=== PATIENT | female | born 1990 | race Caucasian/White ===

== ENCOUNTER → 2017-10-17 | Outpatient (CLI) | payer OTHER ==
--- NOTE | 2017-10-17 14:28 | US ---
EXAMINATION TYPE: US renal artery duplex complet DATE OF EXAM: 10/17/2017 COMPARISON: NONE CLINICAL HISTORY: Hypertension I10. MEASUREMENTS: RENAL SIZE: Rt Kidney: 11.7 x 4.3 x 5.5cm Lt Kidney: 11.8 x 5.4 x 5.2cm RESISTANCE INDEX Right: 0.6 Left: 0.07 RA/AO RATIO (< 3.5 ) Right: 2.2 Left: 2.2 RA VELOCITY ( < 180 cm/s) Right: 203cm/sec Left: 160cm/sec Left kidney stone measuring 0.3 x 0.2 x 0.3cm Slightly high velocity in right renal artery, but no indication of renal artery stenosis. IMPRESSION: 1. No sonographic evidence to suggest renal artery stenosis at this time. 2. Nonobstructing left renal calculus.
== END | disposition home or self-care (01) ==
LOC: RADUSMAIN 11:48
PROVIDERS: ATTEND Internal Medicine Nephrology
DX: N20.0 Calculus of kidney (principal); I10 Essential (primary) hypertension
CPT/HCPCS: 93975

== ENCOUNTER → 2017-10-19 | Outpatient (CLI) | payer OTHER ==
--- NOTE | 2017-10-19 10:47 | ECHOS ---
STRESS ECHOCARDIOGRAM DATE OF SERVICE: 10/19/2017 INDICATIONS: Pre-op cardiac evaluation. MEDICATIONS: BASELINE HEART RATE: 105 BASELINE BLOOD PRESSURE: 136/82 MAXIMUM HEART RATE: 184 MAXIMUM BLOOD PRESSURE: 170/39 85% MPHR: 164 100% MPHR: 193 METS: 10 MAXIMUM STAGE REACHED: III TOTAL EXERCISE TIME: 9 minutes CLINICAL INFORMATION: Baseline EKG shows sinus rhythm, normal axis, nonspecific ST-T wave changes. The patient exercised on Estrada protocol for a total of 9 minutes achieving 10 METs, 95% of predicted maximal heart rate without chest pain. There was worsening of the baseline ST-T wave changes noted. Baseline echo shows normal size left ventricle with mild diffuse global hypokinesis with an ejection fraction of around 45%. Postexercise there is normal hyperdynamic response of all segments of myocardium noted. CONCLUSIONS: 1. Excellent exercise tolerance. 2. Inconclusive EKG part of the stress test due to baseline EKG abnormalities. 3. Non-ischemic cardiomyopathy without any evidence of stress-induced ischemia. MMODL / IJN: [id number] /
== END | disposition home or self-care (01) ==
LOC: RADNMMAIN 08:25
PROVIDERS: ATTEND Internal Medicine Nephrology
DX: O90.3 Peripartum cardiomyopathy (principal); I10 Essential (primary) hypertension; R00.2 Palpitations; R06.09 Other forms of dyspnea
CPT/HCPCS: 93017; 93350

== ENCOUNTER → 2017-10-19 | Outpatient (CLI) | payer OTHER ==
[2017-10-19 09:01] LABS: Basophils % (A) 0 %; Eosinophils # (A) 0.1 k/uL (0-0.7); Eosinophils % (A) 1 %; HCT 47.4 % (34.0-46.0); HGB 15.5 gm/dL (11.4-16.0); Lymphocytes # (A) 1.8 k/uL (1.0-4.8); Lymphocytes % (A) 21 %; MCH 29.5 pg (25.0-35.0); MCHC 32.7 g/dL (31.0-37.0); MCV 90.1 fL (80.0-100.0); Mean Platelet Volume 8.4; Monocytes # (A) 0.3 k/uL (0-1.0); Monocytes % (A) 3 %; Neutrophils # (A) 6.5 k/uL (1.3-7.7); Neutrophils % (A) 73 %; Platelet Count 243 k/uL (150-450); RBC 5.25 m/uL (3.80-5.40); RDW 13.7 % (11.5-15.5); WBC 8.9 k/uL (3.8-10.6)
== END | disposition home or self-care (01) ==
LOC: LABPAT 08:07
PROVIDERS: ATTEND Obstetrics & Gynecology
DX: Z01.812 Encounter for preprocedural laboratory examination (principal)
CPT/HCPCS: 36415; 85025

== ENCOUNTER 2017-10-23 06:18 | Day surgery (SDC) | payer OTHER ==
[2017-10-12 15:10] VITALS: BMI 29.7
[~2017-10-23 06:18] MED LIST: DEXAMETHASONE SOD PHOSPHATE 10 MG/ML 1 ML VIAL IV ONE; LACTATED RINGERS 1,000 ML IV SCH; MIDAZOLAM 2 MG/2 ML VIAL IV PRN; MORPHINE SULFATE 4 MG/ML SYRINGE IV PRN; ONDANSETRON 4 MG/2 ML VIAL IVP ONE; Pre Op ABX Message 1 EACH MISC MISCELLANE ONE; SCOPOLAMINE 1.5MG/72HR PATCH TRANSDERM ONE
[2017-10-23] MEDS ORDERED: BUPIVACAINE (PF) 0.25% 30 ML VIAL SQ ONE (07:25)
[2017-10-23] MEDS ORDERED: PROPOFOL 10 MG/ML 20 ML VIAL IV ONE (07:50)
[2017-10-23] MEDS ORDERED: ROCURONIUM BROMIDE 10 MG/ML 10 ML VIAL IV ONE (07:50)
[2017-10-23] MEDS ORDERED: NEOSTIGMINE 1 MG/ML 10 ML VIAL ONE (07:50)
[2017-10-23] MEDS ORDERED: fentaNYL (PF) 50 MCG/ML 2 ML AMP ONE (07:50)
[2017-10-23] MEDS ORDERED: MIDAZOLAM 2 MG/2 ML VIAL ONE (07:50)
[2017-10-23] MEDS ORDERED: LIDOCAINE 1% INJ 10MG/ML (20 ML MDV) ONE (07:50)
[2017-10-23] MEDS ORDERED: SUCCINYLCHOLINE CHLORIDE 100 MG/5 ML SYR IV ONE (07:50)
[2017-10-23] MEDS ORDERED: GLYCOPYRROLATE 0.2 MG/ML 2 ML VIAL ONE (07:50)
--- NOTE | 2017-10-23 08:18 | P.OP ---
Date of Procedure: 10/23/17 Preoperative Diagnosis: Marisel planning Postoperative Diagnosis: Same Procedure(s) Performed: Laparoscopic tubal occlusion with Filshie clips and removal of Mirena IUD Anesthesia: ARNALDO Surgeon: Rene Gordon Estimated Blood Loss (ml): 5 IV fluids (ml): 700 Urine output (ml): 20 Pathology: none sent Condition: stable Disposition: same day Operative Findings: Normal uterus tubes and ovaries Description of Procedure: Patient was taken to the operating suite where a general anesthetic was found be adequate. She was prepped and draped in the normal sterile fashion and placed in the dorsal lithotomy position. Initially a weighted speculum was inserted into the vagina and the anterior lip cervix was identified and grasped with an Allis clamp. Cervix and brought into view and using a ring forceps the Mirena IUD was removed. Uterus was then sounded to 7 cm and a manipulator was inserted without difficulty. Red rubber cath was then used to drain the bladder of urine and other instruments were removed. Gloves were then changed and attention was turned to the abdominal portion of the procedure where 3 mL of quarter percent Marcaine were injected periumbilically. Through this injected anesthetic a 5 mm skin incision was made. Through this incision under direct visualization with an optical trocar and sleeve the camera was inserted. Once peritoneal placement was assured gas was allowed to fully insufflate the abdomen and patient was then placed in Trendelenburg position. A second port and sleeve were then inserted through an 8 mm skin incision 3 cm above the pubic symphysis in the midline. Observations pelvis were then noted. First the right tube than the left tube had a Filshie clip applied 3 cm from uterine cornu. No bleeding is noted in the mesosalpinx therefore instruments were removed and gas was allowed to expel from the abdomen. 5 deep breaths were provided during this process. Once this was completed ports were removed and 4- 0 Vicryl was used to close the incisions subcuticularly. The remaining 7 mL of Marcaine were then injected around these incisions and instruments were removed from vagina. Sponge, lap, needle counts were all correct 2. Patient was then taken to the recovery room in stable and satisfactory condition. Plan - Discharge Summary New Discharge Prescriptions: New Ibuprofen [Motrin] 600 mg PO Q6HR PRN #30 tab PRN Reason: Pain No Action Ibuprofen [Motrin] 600 mg PO Q6HR PRN #30 tab PRN Reason: Pain traZODone HCL 100 mg PO HS Acetaminophen [Tylenol] 1,000 mg PO Q4-6H PRN PRN Reason: Pain busPIRone HCl [Buspar] 15 mg PO BID Spironolactone [Aldactone] 25 mg PO DAILY Losartan Potassium 50 mg PO HS Carvedilol [Coreg] 6.25 mg PO BID Levonorgestrel [Mirena] 1 implant VAGINAL [id number] Discharge Medication List Ibuprofen [Motrin] 600 mg PO Q6HR PRN #30 tab 03/22/16 [Rx] Acetaminophen [Tylenol] 1,000 mg PO Q4-6H PRN 10/12/17 [History] Carvedilol [Coreg] 6.25 mg PO BID 10/12/17 [History] Levonorgestrel [Mirena] 1 implant VAGINAL [id number] 10/12/17 [History] Losartan Potassium 50 mg PO HS 10/12/17 [History] Spironolactone [Aldactone] 25 mg PO DAILY 10/12/17 [History] busPIRone HCl [Buspar] 15 mg PO BID 10/12/17 [History] traZODone HCL 100 mg PO HS 10/12/17 [History] Ibuprofen [Motrin] 600 mg PO Q6HR PRN #30 tab 10/23/17 [Rx] Follow up Appointment(s)/Referral(s): Rene Gordon DO [Doctor of Osteopathic Medicine] - 2 Weeks Activity/Diet/Wound Care/Special Instructions: No heavy lifting, limit stairs and driving and pelvic rest. If any high temperatures, heavy bleeding, or severe pain call my office Discharge Disposition: HOME SELF-CARE
[2017-10-23] MEDS: HYDROmorphone 4 MG/ML 1 ML SYRINGE IVP ONE ×4 (08:25→08:40)
[2017-10-23 08:35] VITALS: TEMP 98.2
[2017-10-23] MEDS ORDERED: HYDROmorphone 4 MG/ML 1 ML SYRINGE IVP ONE (08:35)
[2017-10-23] MEDS ORDERED: KETOROLAC 30 MG/ML 1 ML VIAL IVP ONE (08:44)
[2017-10-23 09:58] VITALS: BP 136/70; PULSE 88; RESP 18
--- NOTE | 2017-10-24 20:24 | P.HPOB ---
History of Present Illness H&P Date: 10/23/17 Chief Complaint: Family planning Dianne is a 27 female female whose completed her family planning. She had an episode of heather-and/ hypertensive cardiomyopathy with her last and as she has completed her family planning does not wish to risk any further competitions she is scheduled for a laparoscopic tubal occlusion with Filshie clips. Risks/benefits/alternatives were reviewed with the patient in detail and all questions were answered for her prior to proceeding to the operating room. On physical exam vital signs are stable and she is afebrile. Heart regular, lungs clear, extremities are without pain. Abdomen soft nontender. Positive bowel sounds are noted. Pelvic exam is otherwise unremarkable. At the same time as we are tying her fallopian tubes, we'll plan to remove her IUD. All the questions are answered for her prior to proceeding to the operating room and she is been cleared by cardiology for this procedure. Past Medical History Past Medical History: Asthma, GERD/Reflux, Hypertension Additional Past Medical History / Comment(s): cardiomyopathy,SOB with activity History of Any Multi-Drug Resistant Organisms: None Reported Past Surgical History: Adenoidectomy, Section, Cholecystectomy, Tonsillectomy Additional Past Surgical History / Comment(s): d&c 2, exp laparoscopy for cysts on ovary, tubes in ears Past Anesthesia/Blood Transfusion Reactions: No Reported Reaction Smoking Status: Never smoker - Past Family History Mother Family Medical History: No Reported History Additional Family Medical History / Comment(s): Mother is alive at age 45 and has problems with breathing Father Family Medical History: No Reported History Additional Family Medical History / Comment(s): Father is alive and has no major medical problems. Patient has 2 sisters and one has difficulty with breathing. Medications and Allergies Home Medications Medication Instructions Recorded Confirmed Type Ibuprofen [Motrin] 600 mg PO Q6HR PRN #30 tab 03/22/16 10/12/17 Rx Acetaminophen [Tylenol] 1,000 mg PO Q4-6H PRN 10/12/17 10/23/17 History Carvedilol [Coreg] 6.25 mg PO BID 10/12/17 10/12/17 History Levonorgestrel [Mirena] 1 implant VAGINAL [id number] 10/12/17 10/12/17 History Losartan Potassium 50 mg PO HS 10/12/17 10/23/17 History Spironolactone [Aldactone] 25 mg PO DAILY 10/12/17 10/23/17 History busPIRone HCl [Buspar] 15 mg PO BID 10/12/17 10/12/17 History traZODone HCL 100 mg PO HS 10/12/17 10/23/17 History Ibuprofen [Motrin] 600 mg PO Q6HR PRN #30 tab 10/23/17 Rx Allergies Allergy/AdvReac Type Severity Reaction Status Date / Time Sulfa (Sulfonamide Allergy Rash/Hives Verified 10/23/17 06:47 Antibiotics) Exam Osteopathic Statement: *. No significant issues noted on an osteopathic structural exam other than those noted in the History and Physical/Consult.
== END 2017-10-23 10:04 | disposition home or self-care (01) ==
LOC: OR 06:18
PROVIDERS: ATTEND Obstetrics & Gynecology
DX: Z30.2 Encounter for sterilization (principal); Z30.432 Encounter for removal of intrauterine contraceptive device; J45.909 Unspecified asthma, uncomplicated; K21.9 Gastro-esophageal reflux disease without esophagitis; I10 Essential (primary) hypertension; Z79.899 Other long term (current) drug therapy; Z88.2 Allergy status to sulfonamides
CPT/HCPCS: 81025; 58301; 58671; J2250; J1100; J2710; J2405; J2001; J3010; J1885; J0330; J2704; J1170

== ENCOUNTER 2018-09-13 11:55 | Emergency (ER) | payer OTHER ==
[2018-09-13 11:59] VITALS: TEMP 98.1
--- NOTE | 2018-09-13 12:42 | ED ---
General Adult HPI - General Chief complaint: Headache Stated complaint: vision loss Source: patient, RN notes reviewed, old records reviewed Mode of arrival: ambulatory Limitations: no limitations - History of Present Illness Initial comments: 28-year-old female patient with past medical history of hypertension, peripartum Cardiomyopathy presents to ED with 6 month history of visual complaints, falls without provocation. Patient states that she fell yesterday the first time in 2 weeks, caught herself on her arms, denies trauma to head or neck, denies any falls or result in trauma to head or neck, denies any injury sustained from fall. Patient states that without any identifiable trigger she has had her vision in both eyes spontaneously "black out" for approximately 1-2 seconds. Patient states that this is happening frequently within the last 6 months, stated this happened approximately 4 times yesterday. Patient states that she is long history of migraine headaches. Patient states that she has had waxing and waning tension headaches over the last 6 months. Patient states that she has a very mild headache right now, states that this is her baseline. Patient denies worst headache of her life, patient denies thunderclap headache, patient denies nuchal rigidity, patient denies jaw claudication, patient denies pain to palpation of temporal region. Patient denies nausea vomiting diarrhea, fever or chills, IV drug use. Pt follows up with Dr. José with cardiology and Dr. Martinez as PCP. Systemic: Pt denies fatigue, myalgia, fever/chills, rash. Pt denies weakness, night sweats, weight loss. Neuro: Pt denies syncope or pre-syncope. HEENT: Pt denies ocular discharge or irritation, otalgia, rhinorrhea, pharyngitis or notable lymphadenopathy. Cardiopulmonary: Pt denies chest pain, SOB, heart palpitations, dyspnea on exertion. Abdominal/GI: Pt denies abdominal pain, n/v/d. : Pt denies dysuria, burning w/ urination, frequency/urgency. Denies new onset urinary or bowel incontinence. MSK: Pt denies myalgia, loss of strength or function in extremities. Neuro: Pt denies new onset weakness, paresthesias. - Related Data Home Medications Medication Instructions Recorded Confirmed Carvedilol [Coreg] 6.25 mg PO BID 10/12/17 09/13/18 Losartan Potassium 50 mg PO HS 10/12/17 09/13/18 Spironolactone [Aldactone] 25 mg PO DAILY 10/12/17 09/13/18 busPIRone HCl [Buspar] 20 mg PO BID 10/12/17 09/13/18 traZODone HCL 50 - 100 mg PO HS 10/12/17 09/13/18 Allergies Allergy/AdvReac Type Severity Reaction Status Date / Time Sulfa (Sulfonamide Allergy Rash/Hives Verified 09/13/18 12:05 Antibiotics) Review of Systems ROS Statement: Those systems with pertinent positive or pertinent negative responses have been documented in the HPI. ROS Other: All systems not noted in ROS Statement are negative. Past Medical History Past Medical History: Asthma, GERD/Reflux, Hypertension Additional Past Medical History / Comment(s): cardiomyopathy,SOB with activity History of Any Multi-Drug Resistant Organisms: None Reported Past Surgical History: Adenoidectomy, Section, Cholecystectomy, Tonsillectomy Additional Past Surgical History / Comment(s): d&c 2, exp laparoscopy for cysts on ovary, tubes in ears Past Anesthesia/Blood Transfusion Reactions: No Reported Reaction Past Psychological History: Anxiety, Bipolar, Depression Smoking Status: Current some day smoker Past Alcohol Use History: Rare Past Drug Use History: Marijuana - Past Family History Mother Family Medical History: No Reported History Additional Family Medical History / Comment(s): Mother is alive at age 45 and has problems with breathing Father Family Medical History: No Reported History Additional Family Medical History / Comment(s): Father is alive and has no major medical problems. Patient has 2 sisters and one has difficulty with breathing. General Exam - General Exam Comments Initial Comments: Constitutional: NAD, AOX3, Pt has pleasant affect. HEENT: NC/AT, trachea midline, neck supple, no lymphadenopathy. Posterior pharynx non erythematous, without exudates. External ears appear normal, without discharge. Mucous membranes moist. Eyes PERRLA, EOM intact. There is no scleral icterus. No pallor noted. Cardiopulmonary: RRR, no murmurs, rubs or gallops, no JVD noted. Lungs CTAB in anterior and posterior sequeira. No peripheral edema. Abdominal exam: Abdomen soft and non-distended. Abdomen non-tender to palpation in all 4 quadrants. Bowel sounds active in LLQ. No hepatosplenomegaly. No ecchymosis Neuro: CN II-XII intact. No cranial nerve deficit, no focal deficit, no facial droop. No nuchal rigidity. Patient able to without difficulty, heel to toe walking intact.. Psoas and quadriceps strength 5 out of 5 bilaterally. Patellar and Achilles reflexes 2 out of 4 bilaterally. Sensation intact fully in upper and lower extremities. Biceps and triceps strength 5 out of 5 bilaterally. MSK: No posterior calf tenderness bilaterally, homans sign negative bilaterally. Posterior tibialis and radial pulse +2 bilaterally. No jaw claudication, no temporal tenderness to palpation, no erythema, no edema. No cervical spinal tenderness. Limitations: no limitations Course Vital Signs 09/13/18 11:57 Temperature 98.1 F Pulse Rate 105 H Respiratory 18 Rate Blood Pressure 124/84 O2 Sat by Pulse 99 Oximetry Medical Decision Making - Medical Decision Making 28-year-old feel patient presented to ED due to visual complaints, falls without provocation. Patient denies falls resulting in her neck trauma. Patient has had these complaints for approximately 6 months. Physical exam did not reveal gross pathology. Neuro exam was within normal limits, no focal deficit, no facial droop. Patient ambulatory without difficulty. Initial investigations were conducted including a CBC, CMP which were noncompressive. An EKG displayed sinus rhythm with some premature atrial complexes, no concerns for acute ischemia. UA did not display urinary tract infection. CT of brain did not display acute pathology. CT of cervical spine did not exclude carmela malformation, findings explained patient at depth, patient to follow with neurology. Patient instructed not to drive until neurology follow-up. Patient given neurology consult to call today. Patient to follow up with primary care provider in 1-2 days. Patient to return to ED if any new signs or symptoms develop including loss of consciousness, presyncope, chest pain, shortness of breath, worsening changes in vision, new headache, fever/chills, neck stiffness , any other new symptoms. Case discussed with Dr. Wells. - Lab Data Result diagrams: 09/13/18 13:00 09/13/18 13:00 Lab Results 09/13/18 09/13/18 09/13/18 Range/Units 13:00 13:00 13:00 WBC 8.6 (3.8-10.6) k/uL RBC 4.43 (3.80-5.40) m/uL Hgb 13.6 (11.4-16.0) gm/dL Hct 40.9 (34.0-46.0) % MCV 92.2 (80.0-100.0) fL MCH 30.8 (25.0-35.0) pg MCHC 33.3 (31.0-37.0) g/dL RDW 12.3 (11.5-15.5) % Plt Count 182 (150-450) k/uL Neutrophils % 69 % Lymphocytes % 23 % Monocytes % 4 % Eosinophils % 2 % Basophils % 0 % Neutrophils # 5.9 (1.3-7.7) k/uL Lymphocytes # 2.0 (1.0-4.8) k/uL Monocytes # 0.3 (0-1.0) k/uL Eosinophils # 0.2 (0-0.7) k/uL Basophils # 0.0 (0-0.2) k/uL Sodium 140 (137-145) mmol/L Potassium 3.9 (3.5-5.1) mmol/L Chloride 106 (98-107) mmol/L Carbon Dioxide 26 (22-30) mmol/L Anion Gap 8 mmol/L BUN 10 (7-17) mg/dL Creatinine 0.53 (0.52-1.04) mg/dL Est GFR (CKD-EPI)AfAm >90 (>60 ml/min/1.73 sqM) Est GFR (CKD-EPI)NonAf >90 (>60 ml/min/1.73 sqM) Glucose 90 (74-99) mg/dL Calcium 9.5 (8.4-10.2) mg/dL Total Bilirubin 0.6 (0.2-1.3) mg/dL AST 15 (14-36) U/L ALT 28 (9-52) U/L Alkaline Phosphatase 29 L (38-126) U/L Total Protein 6.9 (6.3-8.2) g/dL Albumin 4.2 (3.5-5.0) g/dL Urine Color Urine Appearance (Clear) Urine pH (5.0-8.0) Ur Specific [place] (1.001-1.035) Urine Protein (Negative) Urine Glucose (UA) (Negative) Urine Ketones (Negative) Urine Blood (Negative) Urine Nitrite (Negative) Urine Bilirubin (Negative) Urine Urobilinogen (<2.0) mg/dL Ur Leukocyte Esterase (Negative) Urine RBC (0-5) /hpf Urine WBC (0-5) /hpf Ur Squamous Epith Cells (0-4) /hpf Urine Bacteria (None) /hpf Urine Mucus (None) /hpf Urine HCG, Qual Not Detected (Not Detectd) 09/13/18 Range/Units 13:00 WBC (3.8-10.6) k/uL RBC (3.80-5.40) m/uL Hgb (11.4-16.0) gm/dL Hct (34.0-46.0) % MCV (80.0-100.0) fL MCH (25.0-35.0) pg MCHC (31.0-37.0) g/dL RDW (11.5-15.5) % Plt Count (150-450) k/uL Neutrophils % % Lymphocytes % % Monocytes % % Eosinophils % % Basophils % % Neutrophils # (1.3-7.7) k/uL Lymphocytes # (1.0-4.8) k/uL Monocytes # (0-1.0) k/uL Eosinophils # (0-0.7) k/uL Basophils # (0-0.2) k/uL Sodium (137-145) mmol/L Potassium (3.5-5.1) mmol/L Chloride (98-107) mmol/L Carbon Dioxide (22-30) mmol/L Anion Gap mmol/L BUN (7-17) mg/dL Creatinine (0.52-1.04) mg/dL Est GFR (CKD-EPI)AfAm (>60 ml/min/1.73 sqM) Est GFR (CKD-EPI)NonAf (>60 ml/min/1.73 sqM) Glucose (74-99) mg/dL Calcium (8.4-10.2) mg/dL Total Bilirubin (0.2-1.3) mg/dL AST (14-36) U/L ALT (9-52) U/L Alkaline Phosphatase (38-126) U/L Total Protein (6.3-8.2) g/dL Albumin (3.5-5.0) g/dL Urine Color Yellow Urine Appearance Cloudy H (Clear) Urine pH 6.5 (5.0-8.0) Ur Specific [place] 1.017 (1.001-1.035) Urine Protein Trace H (Negative) Urine Glucose (UA) Negative (Negative) Urine Ketones Negative (Negative) Urine Blood Small H (Negative) Urine Nitrite Negative (Negative) Urine Bilirubin Negative (Negative) Urine Urobilinogen <2.0 (<2.0) mg/dL Ur Leukocyte Esterase Small H (Negative) Urine RBC 1 (0-5) /hpf Urine WBC 1 (0-5) /hpf Ur Squamous Epith Cells 21 H (0-4) /hpf Urine Bacteria Rare H (None) /hpf Urine Mucus Many H (None) /hpf Urine HCG, Qual (Not Detectd) - EKG Data -: EKG Interpreted by Me EKG Comments: Ventricular rate 86, ME interval 144, QRS 86, QT/QTC 368/440. Sinus rhythm with premature atrial complexes. No concerns for acute ischemia. Disposition Clinical Impression: Vision abnormalities, Vision blurred Disposition: HOME SELF-CARE Condition: Good Instructions: Blurred Vision (ED) Additional Instructions: Patient to adhere to previously discussed treatment plan and will take medication(s) as directed. Patient to follow up with PCP in 1-2 days. Patient to return to ED if symptoms do not improve. Is patient prescribed a controlled substance at d/c from ED?: No Referrals: Nuno Avelar MD [Primary Care Provider] - 1-2 days Dagmar Ozuna MD [STAFF PHYSICIAN] - 1-2 days Time of Disposition: 14:04
[2018-09-13 13:17] LABS: Basophils % (A) 0 %; Eosinophils # (A) 0.2 k/uL (0-0.7); Eosinophils % (A) 2 %; HCT 40.9 % (34.0-46.0); HGB 13.6 gm/dL (11.4-16.0); Lymphocytes % (A) 23 %; MCH 30.8 pg (25.0-35.0); MCHC 33.3 g/dL (31.0-37.0); MCV 92.2 fL (80.0-100.0); Mean Platelet Volume 8.2; Monocytes # (A) 0.3 k/uL (0-1.0); Monocytes % (A) 4 %; Neutrophils # (A) 5.9 k/uL (1.3-7.7); Neutrophils % (A) 69 %; Platelet Count 182 k/uL (150-450); RBC 4.43 m/uL (3.80-5.40); RDW 12.3 % (11.5-15.5); WBC 8.6 k/uL (3.8-10.6)
[2018-09-13 13:25] LABS: Appearance,Urine Cloudy (Clear); Bacteria,Urine Rare /hpf; Bilirubin,Urine Negative (Negative); Blood,Urine Small (Negative); Color,Urine Yellow; Glucose,Urine (UA) Negative (Negative); Ketones,Urine Negative (Negative); Leukocyte Esterase,Urine Small (Negative); Mucus,Urine Many /hpf; Nitrite,Urine Negative (Negative); PH, Urine 6.5 (5.0-8.0); Protein,Urine Trace (Negative); RBC,Urine 1 /hpf (0-5); Specific Gravity,Urine 1.017 (1.001-1.035); Squamous Epithelial Cell,Urine 21 /hpf (0-4); Urobilinogen,Urine <2.0 mg/dL (<2.0)
[2018-09-13 13:33] LABS: ALT 28 U/L (9-52); AST 15 U/L (14-36); Albumin 4.2 g/dL (3.5-5.0); Alkaline Phosphatase 29 U/L (38-126); Anion Gap 8 mmol/L; Blood Urea Nitrogen 10 mg/dL (7-17); Calcium 9.5 mg/dL (8.4-10.2); Carbon Dioxide 26 mmol/L (22-30); Chloride 106 mmol/L (98-107); Glucose 90 mg/dL (74-99); Potassium 3.9 mmol/L (3.5-5.1); Sodium 140 mmol/L (137-145); Total Bilirubin 0.6 mg/dL (0.2-1.3); Total Protein 6.9 g/dL (6.3-8.2)
--- NOTE | 2018-09-13 13:42 | CT ---
EXAMINATION TYPE: CT brain chandni wo con DATE OF EXAM: 09/13/2018 COMPARISON: 03/26/2016 HISTORY: vision loss on and off x [address] DLP: 1211.1 mGycm, Automated exposure control for dose reduction was used. CONTRAST: Patient injected with 0 mL of Isovue 300. CT of the brain is performed utilizing 3 mm thick sections through the posterior fossa and 3 mm thick sections through the remaining calvarium. Study is performed within 24 hours of arrival to the hospital. No abnormal hyperdensity is present to suggest an acute intracranial hemorrhage. No mass lesion is evident. No acute infarcts are evident. Ventricles and sulci are appropriate for the patient age. Paranasal sinuses and mastoid air cells within the [id number] are clear. IMPRESSIONS: 1. Normal CT brain. CT cervical spine. COMPARISON: None CT of the cervical spine is performed in the axial plane at 2 mm thick sections. Reconstructed image s in the coronal, and sagittal plane are reviewed on the computer. Chiari malformation is not excluded. This area is difficult to evaluate on the brain within the field -of-view and on bone windows. There is clinical concern, MRI could be performed. No acute fractures are evident. There is a subtle kyphosis centered at C5 present. Disc heights are preserved. Vertebral body heights are preserved. No spinal canal stenosis is evident. Spina bifida occulta of C1 is present. No neural foraminal stenosis is evident. IMPRESSIONS: 1. Cervical kyphosis centered at C5. 2. Chiari malformation is not excluded. This could be better evaluated with MRI.
[2018-09-13 14:22] VITALS: BP 123/72; PULSE 89; RESP 16
== END 2018-09-13 14:20 | disposition home or self-care (01) ==
LOC: EC 11:55
DX: H53.8 Other visual disturbances (principal); I49.1 Atrial premature depolarization; R51 Headache; R29.6 Repeated falls; I10 Essential (primary) hypertension; F31.9 Bipolar disorder, unspecified; F41.9 Anxiety disorder, unspecified; F17.200 Nicotine dependence, unspecified, uncomplicated; Z88.2 Allergy status to sulfonamides; Z79.899 Other long term (current) drug therapy; W19.XXXA Unspecified fall, initial encounter
CPT/HCPCS: 36415; 70450; 72125; 80053; 81001; 81025; 85025; 93005; 99284

== ENCOUNTER → 2018-10-03 | Outpatient (CLI) | payer OTHER ==
--- NOTE | 2018-10-03 15:02 | MR ---
EXAMINATION TYPE: MR cervical spine wo con DATE OF EXAM: 10/03/2018 COMPARISON: HISTORY: Trasient Visual Loss / Arnold-Chiari Syndrome, blackout, dizzy, vision problems CONTRAST: Performed utilizing 0 mL intravenous Gadavist gadolinium contrast. TECHNIQUE: Multiplanar multiecho imaging on a 3.0 Lorraine magnet is performed through the cervical spin e. FINDINGS: The craniovertebral junction has some descent of the tonsillar pillars and through the fora men magnum. This lies 0.6 cm below the Troy's line which is just outside of normal compatible medina e very mild Arnold-Chiari malformation. Tonsillar pain and medullary kinking are not identified. Vertebral body alignment is normal. Disc heights and disc hydration appear preserved. C7-T1: No focal disc herniation or significant disc bulge is evident. No spinal canal stenosis or n eural foraminal stenosis is present. C6-7: Minimal left paracentral bulge is present with very subtle anterior thecal sac contact. No spin al canal stenosis cord contact or neural foraminal stenosis is present.. C5-6: No focal disc herniation or significant disc bulge is evident. No spinal canal stenosis or jen ral foraminal stenosis is present. C4-5: No focal disc herniation or significant disc bulge is evident. No spinal canal stenosis or jen ral foraminal stenosis is present. C3-4: No focal disc herniation or significant disc bulge is evident. No spinal canal stenosis or jen ral foraminal stenosis is present. C2-3: No focal disc herniation or significant disc bulge is evident. No spinal canal stenosis or jen ral foraminal stenosis is present. IMPRESSIONS: 1. Findings compatible with mild Arnold-Chiari malformation. 2. Some very minimal left paracentral broad-based disc bulge is present C6-7 questionable clinical si gnificance.
--- NOTE | 2018-10-03 15:16 | MR ---
EXAMINATION TYPE: MR angio head wo con DATE OF EXAM: 10/03/2018 COMPARISON: None HISTORY: Transient Visual Loss / Arnold-Chiari Syndrome, blackout, dizzy, vision problems CONTRAST: None TECHNIQUE: Multiplanar multiecho imaging on a 3.0 Lorraine magnet is performed through the [place] of [place]. 3-D [id number] imaging is performed. Source images are reviewed on the computer in the axi al plane. Reconstructed images rotating on the computer are reviewed. FINDINGS: The internal carotid arteries bifurcate normally into A1 and M1 segments. The A2 segments are normal. Middle cerebral artery branches are normal. Anterior communicating artery is patent. The right posterior communicating artery is patent. This is smaller than on the left. The left posterior communicating artery is patent. Vertebrobasilar arteries within the [id number] are normal. Posterior cerebral vasculature is norm al. No suspicious aneurysm or aneurysmal dilatation is evident. No obstructions are identified. No significant flow-limiting stenosis is evident. IMPRESSIONS: 1. NORMAL MRA ALUTIIQ OF [place].
--- NOTE | 2018-10-03 16:15 | MR ---
EXAMINATION TYPE: MR brain wo con DATE OF EXAM: 10/03/2018 COMPARISON: CT brain 03/26/2016 HISTORY: Transient Visual Loss / Arnold-Chiari Syndrome, blackout, dizzy, vision problems CONTRAST: Performed utilizing 0 mL intravenous Gadavist gadolinium contrast. TECHNIQUE: Multiplanar, multiecho imaging on a 3.0 Lorraine magnet is performed through the brain. Stud y is performed within 24 hours of arrival to the hospital. The craniovertebral junction has tonsillar descent into the foramen magnum. This was evaluated on the MRI cervical spine is compatible with mild Arnold-Chiari malformation with 6 mm tonsillar descent. N o medullary kinking tonsillar pain is evident.. The pituitary is normal. Diffusion-weighted imaging is performed. No abnormal hyperintensity is present to suggest an acute i ntracranial infarct or acute ischemic change. Signal through the brain is normal. Ventricles and sulci are appropriate for the patient age. Minimal mucosal thickening is within the right maxillary sinus and within ethmoid air cells. Remainin g paranasal sinuses and mastoid air cells are clear. IMPRESSIONS: 1. Arnold-Chiari malformation.
== END | disposition home or self-care (01) ==
LOC: RADMRIMAIN 06:40
PROVIDERS: ATTEND Internal Medicine
DX: Q07.00 Arnold-Chiari syndrome without spina bifida or hydrocephalus (principal); M50.223 Other cervical disc displacement at C6-C7 level; H53.129 Transient visual loss, unspecified eye
CPT/HCPCS: 70544; 70551; 72141

== ENCOUNTER → 2018-10-10 | Outpatient (CLI) | payer OTHER ==
--- NOTE | 2018-10-11 10:40 | ECHOF ---
Referral Reason:O90.3 Post cardiomyopathy MEASUREMENTS -------- HEIGHT: 170.2 cm WEIGHT: 66.2 kg BP: 126/67 RVIDd: 3.3 cm (< 3.3) IVSd: 1.1 cm (0.6 - 1.1) LVIDd: 5.0 cm (3.9 - 5.3) LVPWd: 1.1 cm (0.6 - 1.1) IVSs: 1.5 cm LVIDs: 3.7 cm LVPWs: 1.7 cm LA Diam: 3.6 cm (2.7 - 3.8) LAESV Index (A-L): 17.44 ml/m Ao Diam: 3.4 cm (2.0 - 3.7) AV Cusp: 2.2 cm (1.5 - 2.6) MV EXCURSION: 15.792 mm (> 18.000) MV EF SLOPE: 109 mm/s (70 - 150) EPSS: 0.9 cm MV E Wallace: 0.83 m/s MV DecT: 197 ms MV A Wallace: 0.67 m/s MV E/A Ratio: 1.23 FINDINGS -------- Sinus rhythm with extra systolic beats. This was a technically good study. The left ventricular size is normal. There is borderline concentric left ventricular hypertrophy. Overall left ventricular systolic function is normal with, an EF between 55 - 60 %. The right ventricle is mildly enlarged. Normal LA size by volume 22+/-6 ml/m2. The right atrium is normal in size. The aortic valve is trileaflet and appears structurally normal. Mild mitral regurgitation is present. Mild tricuspid regurgitation present. Right ventricular systolic pressure is normal at < 35 mmHg. Trace/mild (physiologic) pulmonic regurgitation. The aortic root size is normal. Normal inferior vena cava with normal inspiratory collapse consistent with estimated right atrial pre ssure of 5 mmHg. There is no pericardial effusion. CONCLUSIONS -------- 1. Sinus rhythm with extra systolic beats. 2. This was a technically good study. 3. The left ventricular size is normal. 4. There is borderline concentric left ventricular hypertrophy. 5. Overall left ventricular systolic function is normal with, an EF between 55 - 60 %. 6. The right ventricle is mildly enlarged. 7. Normal LA size by volume 22+/-6 ml/m2. 8. The right atrium is normal in size. 9. The aortic valve is trileaflet and appears structurally normal. 10. Mild mitral regurgitation is present. 11. Mild tricuspid regurgitation present. 12. Right ventricular systolic pressure is normal at < 35 mmHg. 13. Trace/mild (physiologic) pulmonic regurgitation. 14. The aortic root size is normal. 15. Normal inferior vena cava with normal inspiratory collapse consistent with estimated right atrial pressure of 5 mmHg. 16. There is no pericardial effusion. CHECKER IN: Lexii Ribera RDCS
== END | disposition home or self-care (01) ==
LOC: RADECHMAIN 15:41
PROVIDERS: ATTEND Internal Medicine
DX: O90.3 Peripartum cardiomyopathy (principal); I08.1 Rheumatic disorders of both mitral and tricuspid valves
CPT/HCPCS: 93306

== ENCOUNTER 2018-12-09 15:47 | Emergency (ER) | payer OTHER ==
--- NOTE | 2018-12-09 16:17 | ED ---
General Adult HPI - General Chief complaint: Chest Pain Stated complaint: Chest pain Time Seen by Provider: 12/09/18 15:57 Source: patient Mode of arrival: ambulatory Limitations: no limitations - History of Present Illness Initial comments: Dictation was produced using [employer] dictation software. please excuse any grammatical, word or spelling errors. Chief Complaint: 28-year-old female presents with chief complaint of chest pain. History of Present Illness: She is a 28-year-old female presents with chief complaint of chest pain. Patient states that her symptoms began 5 days ago. She was seen at [facility] where she had EKG and chest x-ray performed. Patient is discharged told to follow-up with primary care physician. She went to her PCPs office where she was set up with a Holter monitor. Patient was scheduled to have an outpatient echocardiogram here tomorrow. She was at work today when she felt as though her pain was so severe. She reports that her pain is substernal and sharp with exacerbations to deep inspiration. Patient denies any cardiac history. She reports that pain similar in the back area as well. She did report some numbness to her left hand that occurred intermittently. 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 The ROS documented in this emergency department record has been reviewed and confirmed by me. Those systems with pertinent positive or negative responses have been documented in the HPI. All other systems are other negative and/or noncontributory. PHYSICAL EXAM: General Impression: Alert and oriented x3, mildly acute distress HEENT: Normocephalic atraumatic, extra-ocular movements intact, pupils equal and reactive to light bilaterally, mucous membranes moist. Cardiovascular: Heart regular rate and rhythm, S1&S2 audible, no murmurs, rubs or gallops Chest: Lungs clear to auscultation bilaterally, no rhonchi, no wheeze, no rales Abdomen: Bowel sounds present, abdomen soft, non-tender, non-distended, no organomegaly Musculoskeletal: Pulses present and equal in all extremities, no peripheral edema Motor: Power 5/5 bilaterally, no focal deficits noted Neurological: CN II-XII grossly intact, no focal motor or sensory deficits noted Skin: Intact with no visualized rashes Psych: Normal affect and mood ED course: 28 yo female with chief complaint of chest pain. Vital signs upon arrival are within acceptable limits.Laboratory evaluation obtained. CBC, coag panel, metabolic panel, cardiac enzymes negative. CT angios of the chest showed no acute processes. No evidence of pulmonary embolism or acute aortic dissection. 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 Patient's symptoms are atypical for ACS. No aspirin indicated at this time. However given history of chest pain patient likely benefit from cardiology evaluation. Patient does have established cardiology at [facility]. Patient given local millwork estimator information for local evaluation if desired. Patient understandable agreeable to plan. Patient's click or presentation is atypical chest pain without high-risk features. EKG interpretation: Ventricular rate 79, normal sinus rhythm, AK interval 16, QS 90, QTC 4:15. No AK prolongation, no QTC prolongation, no ST or T-wave changes noted. Overall, this EKG is unremarkable - Related Data Home Medications Medication Instructions Recorded Confirmed Carvedilol [Coreg] 6.25 mg PO BID 10/12/17 12/09/18 Losartan Potassium 50 mg PO HS 10/12/17 12/09/18 Spironolactone [Aldactone] 25 mg PO DAILY 10/12/17 12/09/18 busPIRone HCl [Buspar] 20 mg PO BID 10/12/17 12/09/18 Famotidine [Pepcid] 20 mg PO BID 12/09/18 12/09/18 Topiramate [Topamax] 75 mg PO HS 12/09/18 12/09/18 traZODone HCL 25 mg PO HS 12/09/18 12/09/18 Allergies Allergy/AdvReac Type Severity Reaction Status Date / Time Sulfa (Sulfonamide Allergy Rash/Hives Verified 12/09/18 16:39 Antibiotics) Review of Systems ROS Statement: Those systems with pertinent positive or pertinent negative responses have been documented in the HPI. ROS Other: All systems not noted in ROS Statement are negative. Past Medical History Past Medical History: Asthma, GERD/Reflux, Hypertension Additional Past Medical History / Comment(s): cardiomyopathy,SOB with activity History of Any Multi-Drug Resistant Organisms: None Reported Past Surgical History: Adenoidectomy, Section, Cholecystectomy, Tonsillectomy Additional Past Surgical History / Comment(s): d&c 2, exp laparoscopy for cysts on ovary, tubes in ears Past Anesthesia/Blood Transfusion Reactions: No Reported Reaction Past Psychological History: Anxiety, Bipolar, Depression Smoking Status: Current every day smoker Past Alcohol Use History: Rare Past Drug Use History: Marijuana - Past Family History Mother Family Medical History: No Reported History Additional Family Medical History / Comment(s): Mother is alive at age 45 and has problems with breathing Father Family Medical History: No Reported History Additional Family Medical History / Comment(s): Father is alive and has no major medical problems. Patient has 2 sisters and one has difficulty with breathing. General Exam Limitations: no limitations Course Vital Signs 12/09/18 12/09/18 15:50 16:30 Temperature 97.8 F Pulse Rate 85 77 Respiratory 18 20 Rate Blood Pressure 125/77 117/80 O2 Sat by Pulse 100 99 Oximetry Medical Decision Making - Lab Data Result diagrams: 12/09/18 16:30 12/09/18 16:30 Lab Results 12/09/18 12/09/18 12/09/18 Range/Units 16:30 16:30 16:30 WBC 9.7 (3.8-10.6) k/uL RBC 4.40 (3.80-5.40) m/uL Hgb 13.9 (11.4-16.0) gm/dL Hct 41.2 (34.0-46.0) % MCV 93.8 (80.0-100.0) fL MCH 31.7 (25.0-35.0) pg MCHC 33.8 (31.0-37.0) g/dL RDW 12.2 (11.5-15.5) % Plt Count 214 (150-450) k/uL Neutrophils % 68 % Lymphocytes % 24 % Monocytes % 5 % Eosinophils % 1 % Basophils % 0 % Neutrophils # 6.6 (1.3-7.7) k/uL Lymphocytes # 2.3 (1.0-4.8) k/uL Monocytes # 0.5 (0-1.0) k/uL Eosinophils # 0.1 (0-0.7) k/uL Basophils # 0.0 (0-0.2) k/uL PT 10.9 (9.0-12.0) sec INR 1.0 (<1.2) APTT 27.2 (22.0-30.0) sec Sodium 138 (137-145) mmol/L Potassium 3.7 (3.5-5.1) mmol/L Chloride 111 H (98-107) mmol/L Carbon Dioxide 21 L (22-30) mmol/L Anion Gap 6 mmol/L BUN 14 (7-17) mg/dL Creatinine 0.70 (0.52-1.04) mg/dL Est GFR (CKD-EPI)AfAm >90 (>60 ml/min/1.73 sqM) Est GFR (CKD-EPI)NonAf >90 (>60 ml/min/1.73 sqM) Glucose 90 (74-99) mg/dL Calcium 9.3 (8.4-10.2) mg/dL Magnesium 2.1 (1.6-2.3) mg/dL Total Bilirubin 0.6 (0.2-1.3) mg/dL AST 13 L (14-36) U/L ALT 26 (9-52) U/L Alkaline Phosphatase 39 (38-126) U/L Creatine Kinase 44 (30-135) U/L Troponin I (0.000-0.034) ng/mL Total Protein 6.9 (6.3-8.2) g/dL Albumin 4.4 (3.5-5.0) g/dL Lipase 86 (23-300) U/L 12/09/18 Range/Units 16:30 WBC (3.8-10.6) k/uL RBC (3.80-5.40) m/uL Hgb (11.4-16.0) gm/dL Hct (34.0-46.0) % MCV (80.0-100.0) fL MCH (25.0-35.0) pg MCHC (31.0-37.0) g/dL RDW (11.5-15.5) % Plt Count (150-450) k/uL Neutrophils % % Lymphocytes % % Monocytes % % Eosinophils % % Basophils % % Neutrophils # (1.3-7.7) k/uL Lymphocytes # (1.0-4.8) k/uL Monocytes # (0-1.0) k/uL Eosinophils # (0-0.7) k/uL Basophils # (0-0.2) k/uL PT (9.0-12.0) sec INR (<1.2) APTT (22.0-30.0) sec Sodium (137-145) mmol/L Potassium (3.5-5.1) mmol/L Chloride (98-107) mmol/L Carbon Dioxide (22-30) mmol/L Anion Gap mmol/L BUN (7-17) mg/dL Creatinine (0.52-1.04) mg/dL Est GFR (CKD-EPI)AfAm (>60 ml/min/1.73 sqM) Est GFR (CKD-EPI)NonAf (>60 ml/min/1.73 sqM) Glucose (74-99) mg/dL Calcium (8.4-10.2) mg/dL Magnesium (1.6-2.3) mg/dL Total Bilirubin (0.2-1.3) mg/dL AST (14-36) U/L ALT (9-52) U/L Alkaline Phosphatase (38-126) U/L Creatine Kinase (30-135) U/L Troponin I <0.012 (0.000-0.034) ng/mL Total Protein (6.3-8.2) g/dL Albumin (3.5-5.0) g/dL Lipase (23-300) U/L Disposition Clinical Impression: Chest pain Disposition: HOME SELF-CARE Condition: Good Instructions (If sedation given, give patient instructions): Chest Pain (ED) Is patient prescribed a controlled substance at d/c from ED?: No Referrals: Nuno Avelar MD [Primary Care Provider] - 1-2 days Domo Miranda MD [STAFF PHYSICIAN] - 1-2 days Time of Disposition: 18:11
[2018-12-09 16:47] LABS: Basophils % (A) 0 %; Eosinophils # (A) 0.1 k/uL (0-0.7); Eosinophils % (A) 1 %; HCT 41.2 % (34.0-46.0); HGB 13.9 gm/dL (11.4-16.0); Lymphocytes # (A) 2.3 k/uL (1.0-4.8); Lymphocytes % (A) 24 %; MCH 31.7 pg (25.0-35.0); MCHC 33.8 g/dL (31.0-37.0); MCV 93.8 fL (80.0-100.0); Monocytes # (A) 0.5 k/uL (0-1.0); Monocytes % (A) 5 %; Neutrophils # (A) 6.6 k/uL (1.3-7.7); Neutrophils % (A) 68 %; Platelet Count 214 k/uL (150-450); RDW 12.2 % (11.5-15.5); WBC 9.7 k/uL (3.8-10.6)
--- NOTE | 2018-12-09 16:50 | XR ---
EXAMINATION TYPE: XR chest 1V portable DATE OF EXAM: 12/09/2018 COMPARISON: Chest x-ray May 16, 2016 HISTORY: Chest pain. TECHNIQUE: Single frontal view of the chest is obtained. FINDINGS: Overlying EKG leads are seen. There is no focal air space opacity, pleural effusion, or pne umothorax seen. The cardiac silhouette size is within normal limits. The osseous structures are in tact. IMPRESSION: No acute process. No significant change from prior.
[2018-12-09 17:01] LABS: ALT 26 U/L (9-52); AST 13 U/L (14-36); Albumin 4.4 g/dL (3.5-5.0); Alkaline Phosphatase 39 U/L (38-126); Anion Gap 6 mmol/L; Blood Urea Nitrogen 14 mg/dL (7-17); Calcium 9.3 mg/dL (8.4-10.2); Carbon Dioxide 21 mmol/L (22-30); Chloride 111 mmol/L (98-107); Creatine Kinase 44 U/L (30-135); Glucose 90 mg/dL (74-99); Lipase 86 U/L (23-300); Potassium 3.7 mmol/L (3.5-5.1); Sodium 138 mmol/L (137-145); Total Bilirubin 0.6 mg/dL (0.2-1.3); Total Protein 6.9 g/dL (6.3-8.2)
[2018-12-09 17:04] LABS: Partial Thromboplastin Time 27.2 sec (22.0-30.0); Prothrombin Time 10.9 sec (9.0-12.0)
[2018-12-09 17:16] LABS: Magnesium 2.1 mg/dL (1.6-2.3)
--- NOTE | 2018-12-09 17:53 | CT ---
EXAMINATION TYPE: CT angio chest DATE OF EXAM: 12/09/2018 COMPARISON: Chest x-ray from earlier today. CTA chest from 2016 HISTORY: Mid to left chest pain with shortness of breath x [address] DLP: 237.2 mGycm. Automated Exposure Control for Dose Reduction was Utilized. CONTRAST: CTA scan of the thorax is performed with IV Contrast, patient injected with 64 mL of Isovue 370, pulm onary embolism protocol. MIP Images are created on CT scanner and reviewed. FINDINGS: LUNGS: The lungs are grossly clear, there is no concerning parenchymal mass or nodule identified. T here is no pleural effusion or pneumothorax seen. The tracheobronchial tree is patent. MEDIASTINUM: There is satisfactory enhancement of the pulmonary artery and its branches, there is no CT evidence for pulmonary embolism. There are no greater than 1 cm hilar or mediastinal lymph nodes. No cardiomegaly or pericardial effusion is seen. Some curvilinear soft tissue anterior superior me diastinum is felt to reflect residual thymus axial image 45. OTHER: Cholecystectomy clips are seen on current study. IMPRESSION: No CT evidence for acute pulmonary embolism. No suspicious acute pulmonary process curren tly.
[2018-12-09 19:27] VITALS: BP 119/73; PULSE 84; RESP 18; TEMP 98.3
== END 2018-12-09 18:50 | disposition home or self-care (01) ==
LOC: EC 15:47
DX: R07.2 Precordial pain (principal); R20.0 Anesthesia of skin; I10 Essential (primary) hypertension; K21.9 Gastro-esophageal reflux disease without esophagitis; F41.9 Anxiety disorder, unspecified; F32.9 Major depressive disorder, single episode, unspecified; F17.200 Nicotine dependence, unspecified, uncomplicated; Z87.09 Personal history of other diseases of the respiratory system; Z79.899 Other long term (current) drug therapy; Z88.2 Allergy status to sulfonamides
CPT/HCPCS: 36415; 93005; 80053; 82550; 83690; 83735; 84484; 85025; 85610; 85730; 71045; 71275; 99285; Q9967

== ENCOUNTER → 2018-12-19 | Outpatient (CLI) | payer OTHER ==
--- NOTE | 2018-12-19 12:34 | ECHOF ---
Referral Reason:R07.89 Chest Pain MEASUREMENTS -------- HEIGHT: 170.2 cm WEIGHT: 65.3 kg BP: RVIDd: 3.0 cm (< 3.3) IVSd: 1.0 cm (0.6 - 1.1) LVIDd: 4.9 cm (3.9 - 5.3) LVPWd: 1.2 cm (0.6 - 1.1) IVSs: 1.4 cm LVIDs: 4.0 cm LVPWs: 1.2 cm LA Diam: 3.2 cm (2.7 - 3.8) LAESV Index (A-L): 24.09 ml/m Ao Diam: 3.3 cm (2.0 - 3.7) AV Cusp: 2.3 cm (1.5 - 2.6) LA Diam: 3.5 cm (2.7 - 3.8) MV EXCURSION: 22.169 mm (> 18.000) MV EF SLOPE: 120 mm/s (70 - 150) EPSS: 0.4 cm MV E Wallace: 0.85 m/s MV DecT: 257 ms MV A Wallace: 0.73 m/s MV E/A Ratio: 1.16 RAP: 5.00 mmHg RVSP: 20.36 mmHg FINDINGS -------- Sinus rhythm. This was a technically good study. LV size, wall thickness and systolic function are normal, with an EF greater than 55%. The left socrates tricular size is normal. The right ventricle is normal in size. Normal LA size by volume 22+/-6 ml/m2. The right atrial size is normal. The aortic valve is trileaflet, and appears structurally normal. No aortic stenosis or regurgitation. The mitral valve is normal. Mild mitral regurgitation is present. The tricuspid valve appears structurally normal. Mild tricuspid regurgitation present. There is n o evidence of pulmonary hypertension. The right ventricular systolic pressure, as measured by Doppl er, is 20.36mmHg. There is no pulmonic regurgitation present. The aortic root size is normal. There is no pericardial effusion. CONCLUSIONS -------- 1. Sinus rhythm. 2. This was a technically good study. 3. LV size, wall thickness and systolic function are normal, with an EF greater than 55%. 4. The left ventricular size is normal. 5. Normal LA size by volume 22+/-6 ml/m2. 6. The aortic valve is trileaflet, and appears structurally normal. No aortic stenosis or regurgitati on. 7. Mild mitral regurgitation is present. 8. Mild tricuspid regurgitation present. 9. There is no evidence of pulmonary hypertension. 10. There is no pulmonic regurgitation present. 11. The aortic root size is normal. 12. There is no pericardial effusion. ANCHOR TACKER: Nori Lehman RDCS
== END | disposition home or self-care (01) ==
LOC: RADECHMAIN 08:23
PROVIDERS: ATTEND Internal Medicine
DX: I08.1 Rheumatic disorders of both mitral and tricuspid valves (principal); R07.89 Other chest pain
CPT/HCPCS: 93306

== ENCOUNTER → 2019-02-06 | Outpatient (CLI) | payer OTHER ==
[2019-02-05 13:45] VITALS: BMI 23.0
--- NOTE | 2019-02-06 14:20 | P.CONS ---
History of Present Illness - Reason for Consult Consult date: 02/06/19 - Chief Complaint Occipital headache - History of Present Illness This is a 28-year-old lady with chronic history of migraine headache mostly in the occipital area. The patient describes her pain as a throbbing that continues for 5-6 days every week. The patient tried Imitrex with little or no help. Right now she is taking Topamax 100 mg at night. She was referred to us by her neurologist for a trial of occipital nerve block. Her headache also gets worse by movement of the neck. She describes typical symptoms for her migraine headache with photophobia, nausea and vomiting. The patient has a history of cardiomyopathy however her last echo was within normal limits and she also has history of hypertension. Lately she was found to have mild degree of Arnold-Chiari malformation. The patient is going to the [facility] for further consultation for this problem. Review of Systems Cardiovascular: Denies chest pain, Denies shortness of breath Respiratory: Denies cough Neurological: Reports as per HPI Past Medical History Past Medical History: Asthma, GERD/Reflux, Hypertension Additional Past Medical History / Comment(s): migraines, cardiomyopathy,SOB with activity History of Any Multi-Drug Resistant Organisms: None Reported Past Surgical History: Adenoidectomy, Section, Cholecystectomy, Tonsillectomy, Tubal Ligation Additional Past Surgical History / Comment(s): d&c 2, exp laparoscopy for cysts on ovary, tubes in ears Past Anesthesia/Blood Transfusion Reactions: No Reported Reaction Past Psychological History: Anxiety, Bipolar, Depression Smoking Status: Former smoker Past Alcohol Use History: Rare Additional Past Alcohol Use History / Comment(s): quit smoking January 2019,smoked approx 8 mos Past Drug Use History: Marijuana Additional Drug Use History / Comment(s): marijuana daily - Past Family History Mother Family Medical History: No Reported History Additional Family Medical History / Comment(s): Mother is alive at age 45 and has problems with breathing Father Family Medical History: No Reported History Additional Family Medical History / Comment(s): Father is alive and has no major medical problems. Patient has 2 sisters and one has difficulty with breathing. Medications and Allergies Home Medications Medication Instructions Recorded Confirmed Type Carvedilol [Coreg] 6.25 mg PO BID 10/12/17 02/06/19 History Losartan Potassium 50 mg PO HS 10/12/17 02/06/19 History Spironolactone [Aldactone] 25 mg PO DAILY 10/12/17 02/06/19 History busPIRone HCl [Buspar] 30 mg PO BID 10/12/17 02/06/19 History Famotidine [Pepcid] 20 mg PO BID 12/09/18 02/06/19 History Topiramate [Topamax] 100 mg PO HS 12/09/18 02/06/19 History traZODone HCL 50 mg PO HS 12/09/18 02/06/19 History Allergies Allergy/AdvReac Type Severity Reaction Status Date / Time Sulfa (Sulfonamide Allergy Rash/Hives Verified 02/06/19 13:57 Antibiotics) Physical Exam - Constitutional General appearance: average body habitus - EENT Eyes: PERRLA - Respiratory Respiratory: bilateral: CTA - Cardiovascular Rhythm: regular - Integumentary Integumentary: no calor, no cellulitis, no cyanotic, no decreased turgor, no flushed, no jaundiced, no normal, no normal turgor, no pale, no rash, no ulcer - Neurologic Neuro exam of the upper extremities is within normal limits Positive tenderness in the occipital area bilaterally Mild decrease in the range of motion of the cervical spine especially to right cervical rotation. No tenderness in the cervical paravertebral musculature Neurologic: CNII-XII intact - Musculoskeletal Musculoskeletal: gait normal - Psychiatric Psychiatric: A&O x's 3, appropriate affect, intact judgment & insight Assessment and Plan Plan: This is a 28-year-old female with history of chronic migraine headache and occipital headache with no response to antimigraine medications. The patient was referred to our clinic for a trial of occipital nerve block which we will do for 1 time bilaterally. The patient also has mild degree of Arnold-Chiari malformation patient is going for further consultation at the [facility] later on. The above-mentioned procedure was explained to the patient and her questions were answered.
[2019-02-06 14:24] VITALS: BP 121/82; PULSE 70; RESP 16
== END ==
LOC: PNWHC3 13:37
PROVIDERS: ATTEND Anesthesiology
DX: G89.29 Other chronic pain (principal); G43.909 Migraine, unspecified, not intractable, without status migrainosus; I10 Essential (primary) hypertension; Z88.2 Allergy status to sulfonamides; Z79.899 Other long term (current) drug therapy; Z87.891 Personal history of nicotine dependence
CPT/HCPCS: 99211

== ENCOUNTER 2019-02-20 07:20 | Day surgery (SDC) | payer OTHER ==
[2019-02-17 16:06] VITALS: BMI 22.7
[2019-02-20 07:42] VITALS: RESP 18; TEMP 97.8
[2019-02-20 08:51] VITALS: BP 110/61; PULSE 92
--- NOTE | 2019-02-20 08:52 | P.PCN ---
Date of Procedure: 02/20/19 Description of Procedure: Pre-operative diagnosis: 1- Bilateral occipital neuralgea Post Operative Diagnosis 1- Bilateral occipital neuralgea Procedure: 1- Bilateral occipital nerve block ANESTHESIA: None EBL: Minimal PROCEDURE INDICATION: The patient with neck pain and headache secondary to occipital neuralgea unresponsive to conservative treatments. PROCEDURE DESCRIPTION / TECHNIQUE: The patient was seen and identified in the preoperative area. Risks, benefits, complications, and alternatives were discussed with the patient, the patient agreed to proceed with the procedure and signed the consent. IV was started. Vital signs remained stable throughout the procedure. Patient was taken to the OR and time out was completed. The patient was placed in the sitting position on the procedure table. A pillow was placed under the patients chest to increase the cervical interlaminar space. The cervical area and right occiptial area were prepped with alcohol swab. Critical pause was taken. Vital signs were closely monitored during the procedure. Conscious sedation was used during the procedure to decrease patients anxiety. The right occiptal ridge was palpated and was then accessed with a 25 G needle. Then after negative aspiration, 4 ml of the block solution containing 2 ml of PF Ropivacaine 0.5% and Dexamethasone 10 mg was injected. Needle was withdrawn intact. Toenails were injected at each nerve Patient tolerated procedure well. No acute complications.
[2019-02-20] MEDS ORDERED: LACTATED RINGERS 1,000 ML IV SCH (09:00)
== END 2019-02-20 09:00 | disposition home or self-care (01) ==
LOC: ORPAIN 07:20
PROVIDERS: ATTEND Anesthesiology
DX: M54.81 Occipital neuralgia (principal); Z88.2 Allergy status to sulfonamides
CPT/HCPCS: 81025; 64405; J1100; J2001

== ENCOUNTER 2020-11-04 12:00 | Emergency (ER) | payer OTHER ==
[2020-11-04] MEDS ORDERED: SODIUM CHLORIDE 0.9% 1,000 ML IV STA (12:14)
--- NOTE | 2020-11-04 12:43 | ED ---
Abdominal Pain HPI - General Source: patient, RN notes reviewed Mode of arrival: ambulatory Limitations: no limitations <Rohan Plaza - Last Filed: 11/04/20 13:34> <Curt Vidal - Last Filed: 11/04/20 15:34> - General Chief Complaint: Abdominal Pain Stated Complaint: lower abd pain Time Seen by Provider: 11/04/20 12:08 - History of Present Illness Initial Comments: Patient is a 30-year-old female that presented to emergency department with abdominal pain with past medical history of asthma hypertension and GERD. Patient has past surgical history of cholecystectomy. She noted that she went to walk in clinic today and told the practitioner that she was having some right-sided abdominal pain that radiated around around to her back. They told her just to come to the ER to get evaluated. She was in no apparent distress or pain. She'll he noted the pain came on when pressure was applied over the specific location just lateral on the right side of the abdomen at the level of the bellybutton. She noted that she's had this off and on pain for about 4 days now, the pain is a 1 out of 10 that gets worse with pressure. She denied any nausea vomiting diarrhea constipation change in weight change in diet chest pain shortness of breath headache fever chills fatigue night sweats. She also noted that she had her tubes tied. (Rohan Plaza) - Related Data Home Medications Medication Instructions Recorded Confirmed Losartan Potassium 50 mg PO HS 10/12/17 02/17/19 Spironolactone [Aldactone] 25 mg PO DAILY 10/12/17 02/17/19 busPIRone HCl [Buspar] 30 mg PO BID 10/12/17 02/17/19 carvediloL [Coreg] 6.25 mg PO BID 10/12/17 02/17/19 Famotidine [Pepcid] 20 mg PO BID 12/09/18 02/17/19 Topiramate [Topamax] 100 mg PO HS 12/09/18 02/17/19 traZODone HCL 50 mg PO HS 12/09/18 02/17/19 Allergies Allergy/AdvReac Type Severity Reaction Status Date / Time Sulfa (Sulfonamide Allergy Rash/Hives Verified 11/04/20 12:05 Antibiotics) Review of Systems ROS Other: All systems not noted in ROS Statement are negative. <Rohan Plaza - Last Filed: 11/04/20 13:34> ROS Other: All systems not noted in ROS Statement are negative. <Curt Vidal - Last Filed: 11/04/20 15:34> ROS Statement: Those systems with pertinent positive or pertinent negative responses have been documented in the HPI. Past Medical History Past Medical History: Asthma, GERD/Reflux, Hypertension Additional Past Medical History / Comment(s): migraines, cardiomyopathy,SOB with activity History of Any Multi-Drug Resistant Organisms: None Reported Past Surgical History: Adenoidectomy, Section, Cholecystectomy, Tonsillectomy, Tubal Ligation Additional Past Surgical History / Comment(s): d&c 2, exp laparoscopy for cysts on ovary, tubes in ears Past Anesthesia/Blood Transfusion Reactions: No Reported Reaction Past Psychological History: Anxiety, Bipolar, Depression Smoking Status: Never smoker Past Alcohol Use History: Rare Past Drug Use History: Marijuana - Past Family History Mother Family Medical History: No Reported History Additional Family Medical History / Comment(s): Mother is alive at age 45 and has problems with breathing Father Family Medical History: No Reported History Additional Family Medical History / Comment(s): Father is alive and has no major medical problems. Patient has 2 sisters and one has difficulty with breathing. <Rohan Plaza - Last Filed: 11/04/20 13:34> General Exam Limitations: no limitations General appearance: alert, in no apparent distress Head exam: Present: atraumatic, normocephalic, normal inspection Eye exam: Present: normal appearance, PERRL, EOMI. Absent: scleral icterus, co njunctival injection, periorbital swelling ENT exam: Present: normal exam, mucous membranes moist Neck exam: Present: normal inspection. Absent: tenderness, meningismus, lymphadenopathy Respiratory exam: Present: normal lung sounds bilaterally. Absent: respiratory distress, wheezes, rales, rhonchi, stridor Cardiovascular Exam: Present: regular rate, normal rhythm, normal heart sounds. Absent: systolic murmur, diastolic murmur, rubs, gallop, clicks GI/Abdominal exam: Present: soft, normal bowel sounds, other (Increased tenderness and pain on palpation point specific just laterally to the naval on the right side.). Absent: distended, tenderness, guarding, rebound, rigid Extremities exam: Present: normal inspection, full ROM, normal capillary refill. Absent: tenderness, pedal edema, joint swelling, calf tenderness Neurological exam: Present: alert, oriented X3, CN II-XII intact Psychiatric exam: Present: normal affect, normal mood Skin exam: Present: warm, dry, intact, normal color. Absent: rash <Rohan Plaza - Last Filed: 11/04/20 13:34> Course Vital Signs 11/04/20 11/04/20 12:01 14:26 Temperature 98.2 F 98.0 F Pulse Rate 80 68 Respiratory 18 16 Rate Blood Pressure 114/75 110/72 O2 Sat by Pulse 97 99 Oximetry Medical Decision Making - Lab Data Result diagrams: 11/04/20 12:27 11/04/20 12:27 - Radiology Data Radiology results: report reviewed, image reviewed <Rohan Plaza - Last Filed: 11/04/20 13:34> - Lab Data Result diagrams: 11/04/20 12:27 11/04/20 12:27 <Curt Vidal - Last Filed: 11/04/20 15:34> - Medical Decision Making 30-year-old female complaining of abdominal pain. Labs are unremarkable. CT unremarkable for any signs of acute appendicitis. Case discussed with Dr. Rizo (Rohan Plaza) Patient's diagnosis is abdominal pain which is likely secondary to viral syndro me. She's given strict return parameters. I did personally evaluate this patient and discussed the radiology findings with the radiologist, initial interpretation was unclear but there is no signs of appendicitis on CT imaging. There is no leukocytosis. Patient will return with worsening or changing symptoms. (Curt Vidal) - Lab Data Lab Results 11/04/20 11/04/20 11/04/20 Range/Units 12:27 12:27 12:27 WBC 9.0 (3.8-10.6) k/uL RBC 4.83 (3.80-5.40) m/uL Hgb 15.4 (11.4-16.0) gm/dL Hct 44.3 (34.0-46.0) % MCV 91.8 (80.0-100.0) fL MCH 32.0 (25.0-35.0) pg MCHC 34.8 (31.0-37.0) g/dL RDW 11.8 (11.5-15.5) % Plt Count 193 (150-450) k/uL MPV 8.4 Neutrophils % 74 % Lymphocytes % 19 % Monocytes % 4 % Eosinophils % 1 % Basophils % 0 % Neutrophils # 6.7 (1.3-7.7) k/uL Lymphocytes # 1.7 (1.0-4.8) k/uL Monocytes # 0.3 (0-1.0) k/uL Eosinophils # 0.1 (0-0.7) k/uL Basophils # 0.0 (0-0.2) k/uL Sodium 138 (137-145) mmol/L Potassium 4.2 (3.5-5.1) mmol/L Chloride 108 H (98-107) mmol/L Carbon Dioxide 19 L (22-30) mmol/L Anion Gap 11 mmol/L BUN 14 (7-17) mg/dL Creatinine 0.82 (0.52-1.04) mg/dL Est GFR (CKD-EPI)AfAm >90 (>60 ml/min/1.73 sqM) Est GFR (CKD-EPI)NonAf >90 (>60 ml/min/1.73 sqM) Glucose 102 H (74-99) mg/dL Calcium 9.5 (8.4-10.2) mg/dL Total Bilirubin 0.4 (0.2-1.3) mg/dL AST 19 (14-36) U/L ALT 12 (4-34) U/L Alkaline Phosphatase 42 (38-126) U/L Total Protein 7.8 (6.3-8.2) g/dL Albumin 4.9 (3.5-5.0) g/dL Amylase 52 (30-110) U/L Lipase 113 (23-300) U/L Urine Color Light Yellow Urine Appearance Clear (Clear) Urine pH 5.0 (5.0-8.0) Ur Specific [place] 1.020 (1.001-1.035) Urine Protein Negative (Negative) Urine Glucose (UA) Negative (Negative) Urine Ketones Negative (Negative) Urine Blood Negative (Negative) Urine Nitrite Negative (Negative) Urine Bilirubin Negative (Negative) Urine Urobilinogen <2.0 (<2.0) mg/dL Ur Leukocyte Esterase Negative (Negative) Urine HCG, Qual (Not Detectd) 11/04/20 Range/Units 12:27 WBC (3.8-10.6) k/uL RBC (3.80-5.40) m/uL Hgb (11.4-16.0) gm/dL Hct (34.0-46.0) % MCV (80.0-100.0) fL MCH (25.0-35.0) pg MCHC (31.0-37.0) g/dL RDW (11.5-15.5) % Plt Count (150-450) k/uL MPV Neutrophils % % Lymphocytes % % Monocytes % % Eosinophils % % Basophils % % Neutrophils # (1.3-7.7) k/uL Lymphocytes # (1.0-4.8) k/uL Monocytes # (0-1.0) k/uL Eosinophils # (0-0.7) k/uL Basophils # (0-0.2) k/uL Sodium (137-145) mmol/L Potassium (3.5-5.1) mmol/L Chloride (98-107) mmol/L Carbon Dioxide (22-30) mmol/L Anion Gap mmol/L BUN (7-17) mg/dL Creatinine (0.52-1.04) mg/dL Est GFR (CKD-EPI)AfAm (>60 ml/min/1.73 sqM) Est GFR (CKD-EPI)NonAf (>60 ml/min/1.73 sqM) Glucose (74-99) mg/dL Calcium (8.4-10.2) mg/dL Total Bilirubin (0.2-1.3) mg/dL AST (14-36) U/L ALT (4-34) U/L Alkaline Phosphatase (38-126) U/L Total Protein (6.3-8.2) g/dL Albumin (3.5-5.0) g/dL Amylase (30-110) U/L Lipase (23-300) U/L Urine Color Urine Appearance (Clear) Urine pH (5.0-8.0) Ur Specific [place] (1.001-1.035) Urine Protein (Negative) Urine Glucose (UA) (Negative) Urine Ketones (Negative) Urine Blood (Negative) Urine Nitrite (Negative) Urine Bilirubin (Negative) Urine Urobilinogen (<2.0) mg/dL Ur Leukocyte Esterase (Negative) Urine HCG, Qual Not Detected (Not Detectd) - Radiology Data Medical management of any suspected appendicitis suspicious secondary changes suggest acute appendicitis are not radiographically apparent (Rohan Plaza) Disposition Is patient prescribed a controlled substance at d/c from ED?: No Time of Disposition: 14:13 <Rohan Plaza - Last Filed: 11/04/20 13:34> <Curt Vidal - Last Filed: 11/04/20 15:34> Clinical Impression: Abdominal pain, Acute abdomen, Mesenteric adenitis Disposition: HOME SELF-CARE Condition: Stable Instructions (If sedation given, give patient instructions): Abdominal Pain (ED) Additional Instructions: Please return to the Emergency Department if symptoms worsen or any other concerns. CT didn't suggest any acute process with the appendix, if symptoms persist or pain migrates to right lower quadrant come back immediately. Follow-up outpatient with primary care 1-2 days, possibly get a outpatient surgery referral. Referrals: Nuno Avelar MD [Primary Care Provider] - 1-2 days
[2020-11-04 13:00] LABS: Basophils % (A) 0 %; Eosinophils # (A) 0.1 k/uL (0-0.7); Eosinophils % (A) 1 %; HCT 44.3 % (34.0-46.0); HGB 15.4 gm/dL (11.4-16.0); Lymphocytes # (A) 1.7 k/uL (1.0-4.8); Lymphocytes % (A) 19 %; MCHC 34.8 g/dL (31.0-37.0); MCV 91.8 fL (80.0-100.0); Mean Platelet Volume 8.4; Monocytes # (A) 0.3 k/uL (0-1.0); Monocytes % (A) 4 %; Neutrophils # (A) 6.7 k/uL (1.3-7.7); Neutrophils % (A) 74 %; Platelet Count 193 k/uL (150-450); RBC 4.83 m/uL (3.80-5.40); RDW 11.8 % (11.5-15.5)
[2020-11-04 13:19] LABS: ALT 12 U/L (4-34); AST 19 U/L (14-36); African American GFR (CKD) >90 (>60 ml/min/1.73 sqM); Albumin 4.9 g/dL (3.5-5.0); Alkaline Phosphatase 42 U/L (38-126); Amylase 52 U/L (30-110); Anion Gap 11 mmol/L; Blood Urea Nitrogen 14 mg/dL (7-17); Calcium 9.5 mg/dL (8.4-10.2); Carbon Dioxide 19 mmol/L (22-30); Chloride 108 mmol/L (98-107); Glucose 102 mg/dL (74-99); Lipase 113 U/L (23-300); Non-African American GFR(CKD) >90 (>60 ml/min/1.73 sqM); Potassium 4.2 mmol/L (3.5-5.1); Sodium 138 mmol/L (137-145); Total Bilirubin 0.4 mg/dL (0.2-1.3); Total Protein 7.8 g/dL (6.3-8.2)
[2020-11-04 13:25] LABS: Appearance,Urine Clear (Clear); Bilirubin,Urine Negative (Negative); Blood,Urine Negative (Negative); Color,Urine Light Yellow; Glucose,Urine (UA) Negative (Negative); Ketones,Urine Negative (Negative); Leukocyte Esterase,Urine Negative (Negative); Nitrite,Urine Negative (Negative); Protein,Urine Negative (Negative); Urobilinogen,Urine <2.0 mg/dL (<2.0)
--- NOTE | 2020-11-04 13:32 | CT ---
EXAMINATION TYPE: CT abdomen pelvis w con DATE OF EXAM: 11/04/2020 COMPARISON: 01/09/2015 INDICATION: RLQ pain with bowel changes. DLP: 965.8 mGycm, Automated exposure control for dose reduction was used. CONTRAST: 100 mL of Isovue 300. Study performed without Oral Contrast TECHNIQUE: Axial images were obtained from above the diaphragm to the pubic rami in the axial plane a t 5 mm thick sections. Reconstructed images are reviewed on the computer in the coronal plane. FINDINGS: Limited CT sections are obtained the lung bases. The lung bases are clear. CT ABDOMEN: Liver: Normal Spleen: Normal Pancreas: Normal Adrenal glands: The adrenal glands are normal. Gallbladder: Surgically absent Kidneys: No masses are evident. No hydronephrosis is present. No cysts are present. Delayed images were obtained through the kidneys, which remain unremarkable. Aorta: Normal Inferior vena cava: Normal. CT PELVIS: Loops of bowel within the abdomen and pelvis are normal. Study is performed without oral contrast limiting bowel evaluation. Appendix: Not visualized. No dilated tubular structure inflammatory change in the right lower quadran t is evident. The suspected acute appendicitis would be recommended. Urinary bladder: Normal. Genitourinary structures: Uterus is unremarkable. Multiple cysts appear to be on the bilateral ovarie s. Largest is 1.9 cm on the left ovary. Osseous structures: No suspicious lytic or sclerotic lesions. IMPRESSIONS: 1. Medical management of any suspected appendicitis. Suspicious secondary changes suggest acute appe ndicitis or not radiographically apparent. 2. Bilateral ovarian cysts.
[2020-11-04 14:27] VITALS: BP 110/72; PULSE 68; RESP 16; TEMP 98
== END 2020-11-04 14:27 | disposition home or self-care (01) ==
LOC: EC 12:00
DX: I88.0 Nonspecific mesenteric lymphadenitis (principal); R10.0 Acute abdomen; F41.9 Anxiety disorder, unspecified; F31.9 Bipolar disorder, unspecified; K21.9 Gastro-esophageal reflux disease without esophagitis; G43.909 Migraine, unspecified, not intractable, without status migrainosus; I11.9 Hypertensive heart disease without heart failure; I43 Cardiomyopathy in diseases classified elsewhere; Z88.2 Allergy status to sulfonamides; Z79.899 Other long term (current) drug therapy; Z90.49 Acquired absence of other specified parts of digestive tract
CPT/HCPCS: 36415; 80053; 82150; 83690; 85025; 81003; 81025; 74177; 99284; 96360; Q9967

== ENCOUNTER → 2021-04-12 | Outpatient (CLI) | payer OTHER ==
--- NOTE | 2021-04-13 08:20 | US ---
EXAMINATION TYPE: US pelvic complete DATE OF EXAM: 04/12/2021 COMPARISON: 01/09/2015 CLINICAL HISTORY: . Irregular bleeding per patient. TECHNIQUE: Transabdominal (TA). Date of LMP: 04/02/2021, EXAM MEASUREMENTS: Uterus: 10.1 x 5.1 x 4.3 cm Endometrial Stripe: 0.4 cm Right Ovary: 3.2 x 1.9 x 2.1 cm Left Ovary: 4.4 x 4.3 x 3.2 cm 1. Uterus: Anteverted wnl 2. Endometrium: wnl 3. Right Ovary: wnl 4. Left Ovary: cystic lesion = 3.8 x 4.1 x 2.8 cm 5. Bilateral Adnexa: wnl 6. Posterior cul-de-sac: no free fluid IMPRESSION: 1. 4.1 cm left ovarian cyst is simple appearing. 2. Endometrial stripe measures 4 mm, which is within normal limits. 3. No free fluid.
== END | disposition home or self-care (01) ==
LOC: RADUSWWP 15:32
PROVIDERS: ATTEND Obstetrics & Gynecology
DX: N83.202 Unspecified ovarian cyst, left side (principal)
CPT/HCPCS: 76856

== ENCOUNTER → 2021-05-23 | Outpatient (CLI) | payer OTHER ==
[2021-05-23 19:01] LABS: Basophils # (A) 0.04 X 10*3/uL (0.00-0.10); Basophils % (A) 0.4 %; Eosinophils # (A) 0.08 X 10*3/uL (0.04-0.35); Eosinophils % (A) 0.8 %; HCT 42.8 % (37.2-46.3); HGB 14.7 g/dL (12.0-15.0); Lymphocytes # (A) 2.08 X 10*3/uL (0.90-5.00); Lymphocytes % (A) 20.8 %; MCH 31.3 pg (27.0-32.0); MCHC 34.3 g/dL (32.0-37.0); MCV 91.3 fL (80.0-97.0); Mean Platelet Volume 11.3 fL (9.5-12.2); Neutrophils # (A) 7.06 X 10*3/uL (1.80-7.70); Neutrophils % (A) 70.6 %; Platelet Count 249 X 10*3/uL (140-440); RBC 4.69 X 10*6/uL (4.10-5.20); RDW 11.8 % (11.5-14.5)
== END | disposition home or self-care (01) ==
LOC: LABWHC1 12:17
PROVIDERS: ATTEND Obstetrics & Gynecology
DX: Z01.812 Encounter for preprocedural laboratory examination (principal)
CPT/HCPCS: 36415; 85025

== ENCOUNTER 2021-05-30 07:03 | Day surgery (SDC) | payer OTHER ==
[2021-05-25 16:16] VITALS: BMI 28.8
--- NOTE | 2021-05-26 13:29 | P.HPOB ---
History of Present Illness H&P Date: 05/26/21 Chief Complaint: Menorrhagia Dianne is a 30-year-old female with heavy vaginal bleeding. She has continuous heavy periods and bleeds 2-3 times each month a were from 3-5 days. Laboratory studies and ultrasound did not reveal specific cause. 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 Risks/benefits/alternatives to this procedure were reviewed with the patient in detail and all questions were answered for her prior to proceeding to the operative room. It is noted that she does have a ovarian cyst that we will need follow-up moving forward. She was cleared by cardiology for surgery. He has had 2 prior D&C's. Tube ligation for control Past Medical History Past Medical History: Asthma, GERD/Reflux, Hypertension Additional Past Medical History / Comment(s): migraines, cardiomyopathy,SOB with activity at times History of Any Multi-Drug Resistant Organisms: None Reported Past Surgical History: Adenoidectomy, Section, Cholecystectomy, Tonsillectomy, Tubal Ligation Additional Past Surgical History / Comment(s): d&c 2, exp laparoscopy for cysts on ovary, tubes in ears Past Anesthesia/Blood Transfusion Reactions: No Reported Reaction Smoking Status: Former smoker - Past Family History Mother Family Medical History: No Reported History Additional Family Medical History / Comment(s): Mother is alive at age 45 and has problems with breathing Father Family Medical History: No Reported History Additional Family Medical History / Comment(s): Father is alive and has no major medical problems. Patient has 2 sisters and one has difficulty with breathing. Medications and Allergies Home Medications Medication Instructions Recorded Confirmed Type Losartan Potassium 50 mg PO HS 10/12/17 05/25/21 History Spironolactone [Aldactone] 25 mg PO DAILY 10/12/17 05/25/21 History Famotidine [Pepcid] 20 mg PO BID 12/09/18 05/25/21 History Topiramate [Topamax] 100 mg PO HS 12/09/18 05/25/21 History traZODone HCL 100 mg PO HS 12/09/18 05/25/21 History Albuterol Inhaler [Ventolin Hfa 2 puff INHALATION RT-TID PRN 05/25/21 05/25/21 History Inhaler] Metoprolol Succinate (ER) [Toprol 25 mg PO DAILY 05/25/21 05/25/21 History Xl] Allergies Allergy/AdvReac Type Severity Reaction Status Date / Time Sulfa (Sulfonamide Allergy Rash/Hives Verified 05/25/21 11:11 Antibiotics) Exam Osteopathic Statement: *. No significant issues noted on an osteopathic structural exam other than those noted in the History and Physical/Consult. Intake and Output 05/25/21 05/26/21 05/26/21 22:59 06:59 14:59 Other: Weight 83.461 kg - OBG Physical Exam Breast: both: normal (no masses) Abdomen: bowel sounds normal, no diffuse tenderness, no bruit present, no guarding noted, no hepatomegaly, no splenomegaly, no mass Vulva: both: normal Vagina: normal moisture, no discharge Cervix: no lesion, no discharge Uterus: normal size, normal contour Adnexa: both: normal Anus/Rectum: normal perianal skin, no rectal mass, no hemorrhoids, heme negative
[~2021-05-30 07:03] MED LIST changes: -DEXAMETHASONE SOD PHOSPHATE 10 MG/ML 1 ML VIAL IV ONE; +DEXAMETHASONE SOD PHOSPHATE 4 MG/ML 1 ML VIAL IV ONE; +HYDROmorphone 0.5 MG/0.5 ML SYRINGE IVP PRN; +LIDOCAINE 1% (10MG/ML) FOR IV START INTRADERMA PRN; -MIDAZOLAM 2 MG/2 ML VIAL IV PRN; -MORPHINE SULFATE 4 MG/ML SYRINGE IV PRN
[2021-05-30 07:52] VITALS: RESP 16
[2021-05-30] MEDS ORDERED: MIDAZOLAM 2 MG/2 ML VIAL ONE (08:15)
[2021-05-30] MEDS ORDERED: LIDOCAINE 1% INJ 10MG/ML (20 ML MDV) ONE (08:15)
[2021-05-30] MEDS ORDERED: KETOROLAC 15 MG/ML 1 ML VIAL ONE (08:15)
[2021-05-30] MEDS ORDERED: PROPOFOL 10 MG/ML 20 ML VIAL IV ONE (08:15)
[2021-05-30] MEDS ORDERED: fentaNYL (PF) 50 MCG/ML 2 ML AMP ONE (08:15)
--- NOTE | 2021-05-30 08:50 | P.OP ---
Date of Procedure: 05/30/21 Preoperative Diagnosis: Menorrhagia Postoperative Diagnosis: Same Procedure(s) Performed: D&C with hysteroscopy NovaSure Anesthesia: ARNALDO Surgeon: Rene Gordon Estimated Blood Loss (ml): 5 Pathology: other (Uterine curettings) Condition: stable Disposition: same day Operative Findings: Pathology pending Description of Procedure: Dianne was taken to the operating suite where general anesthetic was found be adequate. She was prepped and draped in normal sterile fashion and placed in dorsal lithotomy position. Initially a weighted speculum was inserted in the vagina and the anterior lip of cervix identified and grasped with an Allis clamp. Uterus was then sounded to 11 cm and cervix was dilated. Camera was inserted with proliferative endometrium noted. Camera was then removed and sharp curettings of the endometrium were obtained. This tissues collected, placed on Telfa, and sent to pathology for evaluation. NovaSure system was then brought in with length of 5.5 and a width of 4.1 was tested and passed its patency test. It was then enabled and activated and burned for 60 seconds. Conclusion the burn, system was removed camera was reinserted with excellent burn noted. Sponge, lap, needle counts were all correct 2 as all incidents were then removed. Patient was then taken to the recovery room in stable and satisfactory condition. Plan - Discharge Summary Discharge Rx Participant: No New Discharge Prescriptions: New Ibuprofen [Motrin] 600 mg PO Q6HR PRN #30 tab PRN Reason: Pain No Action Spironolactone [Aldactone] 25 mg PO DAILY Losartan Potassium 50 mg PO HS traZODone HCL 100 mg PO HS Topiramate [Topamax] 100 mg PO HS Famotidine [Pepcid] 20 mg PO BID Metoprolol Succinate (ER) [Toprol Xl] 25 mg PO DAILY Albuterol Inhaler [Ventolin Hfa Inhaler] 2 puff INHALATION RT-TID PRN PRN Reason: Shortness Of Breath Or Wheezing Discharge Medication List Losartan Potassium 50 mg PO HS 10/12/17 [History] Spironolactone [Aldactone] 25 mg PO DAILY 10/12/17 [History] Famotidine [Pepcid] 20 mg PO BID 12/09/18 [History] Topiramate [Topamax] 100 mg PO HS 12/09/18 [History] traZODone HCL 100 mg PO HS 12/09/18 [History] Albuterol Inhaler [Ventolin Hfa Inhaler] 2 puff INHALATION RT-TID PRN 05/25/21 [History] Metoprolol Succinate (ER) [Toprol Xl] 25 mg PO DAILY 05/25/21 [History] Ibuprofen [Motrin] 600 mg PO Q6HR PRN #30 tab 05/30/21 [Rx] Follow up Appointment(s)/Referral(s): Rene Gordon DO [Doctor of Osteopathic Medicine] - 2 Weeks Activity/Diet/Wound Care/Special Instructions: No heavy lifting, limit stairs and driving, and pelvic rest. If any high temperatures, heavy bleeding, or severe pain call my office
[2021-05-30 08:58] VITALS: TEMP 97.7
[2021-05-30] MEDS ORDERED: HYDROmorphone 0.5 MG/0.5 ML SYRINGE IVP ONE (10:04)
[2021-05-30] MEDS ORDERED: LACTATED RINGERS 1,000 ML IV ONE (10:45)
[2021-05-30 11:21] VITALS: BP 113/70; PULSE 66
== END 2021-05-30 11:39 | disposition home or self-care (01) ==
LOC: OR 07:03
PROVIDERS: ATTEND Obstetrics & Gynecology
DX: N92.0 Excessive and frequent menstruation with regular cycle (principal); I42.9 Cardiomyopathy, unspecified; Z88.2 Allergy status to sulfonamides; J45.909 Unspecified asthma, uncomplicated; F41.9 Anxiety disorder, unspecified; F32.9 Major depressive disorder, single episode, unspecified; K21.9 Gastro-esophageal reflux disease without esophagitis; Z79.899 Other long term (current) drug therapy
CPT/HCPCS: 58563; 93005; 81025; 88305; J2250; J1100; J2405; J2001; J3010; J1885; J2704; J1170

== ENCOUNTER → 2021-07-18 | Outpatient (CLI) | payer OTHER ==
--- NOTE | 2021-07-18 13:53 | US ---
EXAMINATION TYPE: US pelvic complete DATE OF EXAM: 07/18/2021 COMPARISON: 04/12/2021 CLINICAL HISTORY: N83.0 Left ovarian cyst. TECHNIQUE: Transabdominal (TA). Transabdominal sonographic images of the pelvis were acquired. Date of LMP: ??Irregular EXAM MEASUREMENTS: Uterus: 9.9x4.0x5.5cm Endometrial Stripe: 0.6m Right Ovary: 2.6x2.0x2.2cm Left Ovary: 2.6x1.6x2.8cm Small amount of free fluid in the posterior cul de sac 1. Uterus: Anteverted wnl 2. Endometrium: wnl 3. Right Ovary: wnl 4. Left Ovary: wnl Color Doppler shows peripheral flow at the level of the ovaries 5. Bilateral Adnexa: wnl 6. Posterior cul-de-sac: Fluid IMPRESSION: Resolution of patient's left ovarian cyst
== END | disposition home or self-care (01) ==
LOC: RADUSWWP 12:26
PROVIDERS: ATTEND Obstetrics & Gynecology
DX: N83.202 Unspecified ovarian cyst, left side (principal)
CPT/HCPCS: 76856